=== PATIENT | male | born 1970 | race Two or more races ===

== ENCOUNTER 2017-05-13 08:24 | Inpatient (IN) | payer SELFPAY ==
[2017-05-13 09:08] LABS: ADD MAN DIFF? NO
[2017-05-13] MEDS: IV NORMAL SALINE 1000ML BAG 1,000 ML IV ×4 (09:10→21:00)
[2017-05-13] MEDS: ONDANSETRON PF 4 MG/2 ML VIAL. IV (09:12)
[2017-05-13] MEDS: KETOROLAC 30 MG/ML INJ. IV (09:13)
[2017-05-13] MEDS ORDERED: CONTRAST GIVEN MC (09:15)
[2017-05-13 09:20] LABS: BASO % 0 % (0-3); EOS % 0 % (0-3); HEMATOCRIT 42.3 % (39.0-53.0); HEMOGLOBIN 14.3 g/dL (13.0-17.5); LYMPH # 1.1 x10^3/uL (1.0-4.8); LYMPH % 12 % (24-48); MEAN CORPUSCULAR HEMOGLOBIN 30 pg (25-35); MEAN CORPUSCULAR HGB CONC 34 g/dL (31-37); MEAN CORPUSCULAR VOLUME 90 fL (79-100); MONO # 0.5 x10^3/uL (0.0-1.1); MONO % 6 % (0-9); NEUT # 7.2 x10^3uL (1.8-7.7); NEUT % 82 % (31-73); PLATELET COUNT 220 x10^3/uL (140-400); WHITE BLOOD COUNT 8.8 x10^3/uL (4.0-11.0)
[2017-05-13 09:22] LABS: ANION GAP 10 (6-14); BLOOD UREA NITROGEN 17 mg/dL (8-26); BUN/CREATININE RATIO 17 (6-20); CALCIUM 9.1 mg/dL (8.5-10.1); CARBON DIOXIDE 28 mmol/L (21-32); CHLORIDE 102 mmol/L (98-107); GFR 80.4; GLUCOSE 107 mg/dL (70-99); POTASSIUM 3.6 mmol/L (3.5-5.1); SODIUM 140 mmol/L (136-145)
[2017-05-13 09:27] LABS: ALBUMIN 4.1 g/dL (3.4-5.0); ALBUMIN/GLOBULIN RATIO 1.1 (1.0-1.7); ALK PHOS 37 U/L (46-116); ALT (SGPT) 23 U/L (16-63); AST (SGOT) 18 U/L (15-37); LIPASE 122 U/L (73-393); TOTAL BILIRUBIN 0.5 mg/dL (0.2-1.0); TOTAL PROTEIN 7.7 g/dL (6.4-8.2)
[2017-05-13] MEDS: IOHEXOL 300 MG/ML 100ML VIAL. IV (09:44)
[2017-05-13] MEDS ORDERED: MIDAZOLAM HCL/PF 2 MG/2 ML VIAL. (10:37)
[2017-05-13] MEDS ORDERED: fentaNYL PF VIAL 100 MCG/2 ML VIAL (10:38)
[2017-05-13] MEDS ORDERED: DEXAMETHASONE SOD PHOS 20 MG/5 ML VIAL. (10:42)
[2017-05-13] MEDS ORDERED: SEVOFLURANE 61 TO 120 MINUTES. IH (10:42)
[2017-05-13] MEDS ORDERED: LIDOCAINE 2% PF Vial for OR 5 ML VIAL. (10:42)
[2017-05-13] MEDS ORDERED: ONDANSETRON PF 4 MG/2 ML VIAL. (10:42)
[2017-05-13] MEDS ORDERED: KETOROLAC 30 MG/ML INJ FOR OR. INJ (10:42)
[2017-05-13] MEDS ORDERED: PROPOFOL 20 ML IV ×2 (10:42→12:08)
[2017-05-13] MEDS ORDERED: ONDANSETRON PF 4 MG/2 ML VIAL. IV ×2 (10:45→11:00)
[2017-05-13] MEDS ORDERED: MORPHINE SULFATE 4 MG/ML DISP.SYRIN. IV (10:45)
[2017-05-13] MEDS ORDERED: fentaNYL PF VIAL 100 MCG/2 ML VIAL IV (11:00)
[2017-05-13] MEDS ORDERED: oxyCODONE/APAP 5/325 1 TAB TABLET PO (11:00)
[2017-05-13 11:03] LABS: LACTIC ACID 0.7 mmol/L (0.4-2.0)
[2017-05-13] MEDS: IV RINGERS,LACTATED 1000ML 1,000 ML IV ×2 (11:30→21:30)
[2017-05-13 11:41] LABS: INR 1.1 (0.8-1.1); PARTIAL THROMBOPLASTIN TIME 33 SEC (24-38); PROTHROMBIN TIME PATIENT 13.1 SEC (11.7-14.0)
[2017-05-13] MEDS ORDERED: PHENYLEPHRINE in 0.9% NACL PF 1 MG/10 ML SYRINGE. IV (11:56)
[2017-05-13] MEDS: BUPIVACAINE-EPI 0.25%-1:200000 50 ML VIAL. (12:00)
[2017-05-13] MEDS ORDERED: NEOSTIGMINE METHYLSULFATE 5 MG/5 ML SYRINGE. (12:01)
[2017-05-13] MEDS ORDERED: GLYCOPYRROLATE 1 MG/5 ML VIAL. (12:02)
[2017-05-13 14:21] LABS: BILIRUBIN,URINE NEGATIVE (NEG); CLARITY,URINE CLEAR; COLOR,URINE YELLOW; GLUCOSE,URINE NEGATIVE (NEG); NITRITE,URINE NEGATIVE (NEG); PH,URINE 6.5; PROTEIN,URINE NEGATIVE (NEG-TRACE); UROBILINOGEN,URINE 0.2 mg/dL (0.2 mg/dL)
[2017-05-13 14:40] LABS: BACTERIA,URINE 0 /HPF (0-FEW); RBC,URINE 0 /HPF (0-2); WBC,URINE 0 /HPF (0-4)
[2017-05-13] MEDS: KETOROLAC 15 MG/ML VIAL. IV (18:00)
[2017-05-13] MEDS: FAMOTIDINE 20 MG/2 ML VIAL IVP (20:20)
[2017-05-14 04:53] LABS: ADD MAN DIFF? NO
[2017-05-14 05:13] LABS: BASO % 0 % (0-3); EOS % 0 % (0-3); HEMATOCRIT 36.1 % (39.0-53.0); LYMPH # 1.9 x10^3/uL (1.0-4.8); LYMPH % 16 % (24-48); MEAN CORPUSCULAR HEMOGLOBIN 30 pg (25-35); MEAN CORPUSCULAR HGB CONC 33 g/dL (31-37); MEAN CORPUSCULAR VOLUME 91 fL (79-100); MONO # 0.8 x10^3/uL (0.0-1.1); MONO % 7 % (0-9); NEUT # 9.4 x10^3uL (1.8-7.7); NEUT % 77 % (31-73); PLATELET COUNT 194 x10^3/uL (140-400); RED BLOOD COUNT 3.98 x10^6/uL (4.30-5.70); RED CELL DISTRIBUTION WIDTH 13.9 % (11.5-14.5); WHITE BLOOD COUNT 12.1 x10^3/uL (4.0-11.0)
[2017-05-14 05:17] LABS: ANION GAP 9 (6-14); BLOOD UREA NITROGEN 16 mg/dL (8-26); CALCIUM 8.5 mg/dL (8.5-10.1); CARBON DIOXIDE 24 mmol/L (21-32); CHLORIDE 109 mmol/L (98-107); CREATININE 0.9 mg/dL (0.7-1.3); GFR 90.8; GLUCOSE 102 mg/dL (70-99); SODIUM 142 mmol/L (136-145)
[2017-05-14] MEDS: IV RINGERS,LACTATED 1000ML 1,000 ML IV (05:51)
[2017-05-14] MEDS: KETOROLAC 15 MG/ML VIAL. IV ×2 (05:52)
[2017-05-14] MEDS: IV NORMAL SALINE 1000ML BAG 1,000 ML IV (07:00)
[2017-05-14] MEDS: FAMOTIDINE 20 MG/2 ML VIAL IVP (09:02)
[2017-05-14] MEDS: DOCUSATE SODIUM 100 MG CAPSULE. PO (09:02)
== END 2017-05-14 11:10 | disposition home or self-care (01) | DRG 354 ==
LOC: ER 08:24 → 4 NORTH 10:38
PROC: 0WQF0ZZ Repair Abdominal Wall, Open Approach (ICD-10-PCS; principal; 2017-05-13 10:45)
DX: K43.6 Other and unspecified ventral hernia with obstruction, without gangrene (principal); N13.30 Unspecified hydronephrosis; D17.71 Benign lipomatous neoplasm of kidney
CPT/HCPCS: 36415; 74177; 80048; 80053; 81001; 83605; 83690; 85025; 85610; 85730; 87086; 88302; 96361; 96374; 96375; 99285; 99285-25; A4215; J0690; J1100; J1885; J2250; J2370; J2405; J2704; J2710; J3010; J3490; J7030; J7120; Q9967; S0028